=== PATIENT | female | born 1980 | race Caucasian/White ===

== ENCOUNTER 2018-08-21 00:34 | Emergency (ER) | payer OTHER ==
[2018-08-21 01:06] LABS: BASOPHILS % (AUTO) 1 % (0-3); EOSINOPHILS % (AUTO) 1 % (0-9); HEMATOCRIT 45 % (35-47); HEMOGLOBIN 14.9 gm/dl (12.0-15.5); LYMPHOCYTES % (AUTO) 31.3 % (10-50); MEAN CORPUSCULAR HEMOGLOBIN 32.9 pg (27.0-32.0); MEAN CORPUSCULAR HGB CONC 33.3 gm/dl (32.0-36.0); MONOCYTES % (AUTO) 8.1 % (0-12); NEUTROPHILS % (AUTO) 59.1 % (37-80)
[2018-08-21 01:15] LABS: MEAN CORPUSCULAR VOLUME 99 fL (81-99)
[2018-08-21 01:28] LABS: ALBUMIN 3.1 gm/dl (3.4-5.0); ALKALINE PHOSPHATASE 84 IU/L (46-116); ALT 30 IU/L (14-63); AST 35 IU/L (15-37); BILIRUBIN,TOTAL 0.2 mg/dl (0.2-1.0); BLOOD UREA NITROGEN 6 mg/dl (7-18); CALCIUM 8.2 mg/dl (8.5-10.1); CARBON DIOXIDE 24.2 mEq/L (21-32); CHLORIDE 104 mMol/L (98-107); CREATININE 0.55 mg/dl (0.60-1.00); GLUCOSE 97 mg/dl (74-106); POTASSIUM 3.3 mMol/L (3.5-5.1); SALICYLATE 5.4 mg/dl (2.8-30.0); SODIUM 139 mMol/L (136-145); THYROID STIMULATING HORMONE 3.146 uIU/ml (0.358-3.740); TOTAL PROTEIN 6.8 gm/dl (6.4-8.2)
[2018-08-21 01:29] LABS: APPEARANCE,URINE Clear; BILIRUBIN,URINE NEGATIVE (NEGATIVE); COLOR,URINE Yellow; GLUCOSE, URINE (UA) NEGATIVE (NEGATIVE); KETONES,URINE NEGATIVE (NEGATIVE); LEUKOCYTE ESTERASE ,URINE NEGATIVE (NEGATIVE); NITRATE,URINE NEGATIVE (NEGATIVE); OCCULT BLOOD,URINE NEGATIVE (NEG-TRACE); UROBILINOGEN,URINE 0.2 (0.2-1.0 EU)
[2018-08-21 01:36] LABS: AMPHETAMINES NEGATIVE (NEGATIVE); BARBITUATES NEGATIVE (NEGATIVE); BENZODIAZEPINES NEGATIVE (NEGATIVE); CANNABINOL(THC) NEGATIVE (NEGATIVE); COCAINE(COC) NEGATIVE (NEGATIVE); METHADONE NEGATIVE (NEGATIVE); METHAMPHETAMINES NEGATIVE (NEGATIVE); OPIATES(OPI) NEGATIVE (NEGATIVE); OXYCODONE(OXY) NEGATIVE (NEGATIVE); PROPOXYPHENE(PPX) NEGATIVE (NEGATIVE); TRICYCLIC ANTIDEPRESSANTS NEGATIVE (NEGATIVE)
[2018-08-21 01:37] LABS: ACETAMINOPHEN < 2 ug/ml (10-30)
[2018-08-21 01:51] LABS: BACTERIA TRACE (< 1+); CRYSTALS NEGATIVE (0-3 AVE/HPF); EPITHELIAL CELLS 0-2 (SQUAMOUS); RBC,URINE NEGATIVE (0-3AV/HPF); WBC,URINE 0-2 (0-5AV/HPF)
[2018-08-21] MEDS ORDERED: POTASSIUM CHLORIDE 10 MEQ TER PO ONE (02:36)
[2018-08-21] MEDS ORDERED: POTASSIUM CHLORIDE 10 MEQ TER ONE (02:51)
[2018-08-21] MEDS ORDERED: SODIUM CHLORIDE 0.9% 1000ML 1,000 ML IV ONE (03:28)
[2018-08-21 07:48] VITALS: BP 160/95; PULSE 79; RESP 20; TEMP 97.4; O2SAT 97
== END 2018-08-21 08:31 | DRG 880 ==
LOC: ED 00:34
DX: R45.851 Suicidal ideations (principal)
CPT/HCPCS: 36415; 80053; 80305; 80307; 81001; 84443; 84703; 85025; 96365; 99283; 99285; A9270-GY

== ENCOUNTER 2018-12-02 06:47 | Emergency (ER) | payer OTHER ==
[2018-12-02 06:53] VITALS: RESP 24
[2018-12-02 07:11] VITALS: TEMP 96.6
[2018-12-02] MEDS ORDERED: SODIUM CHLORIDE 0.9% 1000ML 1,000 ML IV ONE (07:41)
[2018-12-02] MEDS ORDERED: ONDANSETRON HCL 4 MG/2 ML SOL IV ONE (07:42)
[2018-12-02 07:54] LABS: BASOPHILS % (AUTO) 1 % (0-3); EOSINOPHILS % (AUTO) 0 % (0-9); HEMATOCRIT 45 % (35-47); HEMOGLOBIN 14.9 gm/dl (12.0-15.5); LYMPHOCYTES % (AUTO) 11.3 % (10-50); MEAN CORPUSCULAR HEMOGLOBIN 30.6 pg (27.0-32.0); MEAN CORPUSCULAR HGB CONC 32.9 gm/dl (32.0-36.0); MEAN CORPUSCULAR VOLUME 93 fL (81-99); MONOCYTES % (AUTO) 10.1 % (0-12)
[2018-12-02] MEDS ORDERED: ONDANSETRON HCL 4 MG/2 ML SOL ONE (07:54)
[2018-12-02 08:15] LABS: INFLUENZA A NEGATIVE (NEGATIVE); INFLUENZA B NEGATIVE (NEGATIVE)
[2018-12-02 08:18] LABS: CALCIUM 8.5 mg/dl (8.5-10.1); CARBON DIOXIDE 23.3 mEq/L (21-32); CREATININE 0.7 mg/dl (0.60-1.00)
[2018-12-02 08:21] LABS: POTASSIUM 2.9 mMol/L (3.5-5.1)
[2018-12-02] MEDS ORDERED: POTASSIUM CHLORIDE 10 MEQ TER PO ONE (08:58)
[2018-12-02] MEDS ORDERED: POTASSIUM CHLORIDE 10 MEQ TER ONE (09:04)
[2018-12-02] MEDS ORDERED: HYDRALAZINE HYDROCHLORIDE 20 MG/ML SOL IV SCH (10:30)
[2018-12-02] MEDS ORDERED: HYDRALAZINE HYDROCHLORIDE 20 MG/ML SOL ONE (10:34)
[2018-12-02 11:34] VITALS: BP 143/86; PULSE 85; O2SAT 97
== END 2018-12-02 11:15 | disposition home or self-care (01) | DRG 153 ==
LOC: ED 06:47
DX: J01.90 Acute sinusitis, unspecified (principal); E87.6 Hypokalemia
CPT/HCPCS: 71046; 80048; 85025; 87070; 87205; 87220; 87430; 87804; 96365; 96366; 96374; 96375; 99283; 99285; J0360; J2405; A9270-GY

== ENCOUNTER 2019-02-08 09:07 | Emergency (ER) | payer OTHER ==
[2019-02-08 09:14] VITALS: RESP 20
[2019-02-08] MEDS ORDERED: SODIUM CHLORIDE 0.9% 1000ML 1,000 ML IV ONE ×2 (09:43→10:12)
[2019-02-08 09:58] LABS: BASOPHILS % (AUTO) 1 % (0-3); EOSINOPHILS % (AUTO) 1 % (0-9); HEMATOCRIT 45 % (35-47); HEMOGLOBIN 15.1 gm/dl (12.0-15.5); LYMPHOCYTES % (AUTO) 30.2 % (10-50); MEAN CORPUSCULAR HEMOGLOBIN 32.2 pg (27.0-32.0); MEAN CORPUSCULAR HGB CONC 33.2 gm/dl (32.0-36.0); MEAN CORPUSCULAR VOLUME 97 fL (81-99); MONOCYTES % (AUTO) 6.2 % (0-12); NEUTROPHILS % (AUTO) 62.1 % (37-80)
[2019-02-08 10:26] LABS: ALBUMIN 3.1 gm/dl (3.4-5.0); ALKALINE PHOSPHATASE 99 IU/L (46-116); ALT 31 IU/L (14-63); AST 59 IU/L (15-37); BILIRUBIN,TOTAL 0.2 mg/dl (0.2-1.0); BLOOD UREA NITROGEN 5 mg/dl (7-18); CALCIUM 7.9 mg/dl (8.5-10.1); CARBON DIOXIDE 28.6 mEq/L (21-32); CHLORIDE 107 mMol/L (98-107); CREATININE 0.64 mg/dl (0.60-1.00); GLUCOSE 93 mg/dl (74-106); SALICYLATE 4.1 mg/dl (2.8-30.0); SODIUM 147 mMol/L (136-145); THYROID STIMULATING HORMONE 0.381 uIU/ml (0.358-3.740); TOTAL PROTEIN 7.1 gm/dl (6.4-8.2)
[2019-02-08 10:28] LABS: ACETAMINOPHEN < 2 ug/ml (10-30)
[2019-02-08 10:29] LABS: POTASSIUM 2.9 mMol/L (3.5-5.1)
[2019-02-08] MEDS ORDERED: POTASSIUM CHLORIDE 10 MEQ TER PO ONE (10:31)
[2019-02-08 10:32] LABS: ALCOHOL 0.391 gm/dl (0.000-0.08)
[2019-02-08] MEDS ORDERED: POTASSIUM CHLORIDE 2 MEQ/ML 20 MEQ, LIDOCAINE HCL 1% MDV 2 ML in SODIUM CHLORIDE 0.9% 2... IV ONE (10:32)
[2019-02-08] MEDS ORDERED: POTASSIUM CHLORIDE 10 MEQ TER ONE ×2 (10:40→13:41)
[2019-02-08] MEDS ORDERED: POTASSIUM CHLORIDE 2 MEQ/ML SOL IV ONE (10:43)
[2019-02-08] MEDS ORDERED: THIAMINE 100 MG TAB PO ONE (11:25)
[2019-02-08] MEDS ORDERED: SODIUM CHLORIDE 0.9% 1000ML 1,000 ML IV SCH ×2 (11:30→12:56)
[2019-02-08] MEDS ORDERED: THIAMINE 100 MG TAB ONE (11:40)
[2019-02-08] MEDS ORDERED: MULTIVITAMIN2 1 EA TAB ONE (11:47)
[2019-02-08 13:14] VITALS: TEMP 96.4; O2SAT 92
[2019-02-08 14:54] VITALS: BP 128/88; PULSE 84
[2019-02-08 15:36] LABS: APPEARANCE,URINE Clear; BILIRUBIN,URINE NEGATIVE (NEGATIVE); COLOR,URINE Yellow; GLUCOSE, URINE (UA) NEGATIVE (NEGATIVE); KETONES,URINE NEGATIVE (NEGATIVE); LEUKOCYTE ESTERASE ,URINE NEGATIVE (NEGATIVE); NITRATE,URINE NEGATIVE (NEGATIVE); OCCULT BLOOD,URINE NEGATIVE (NEG-TRACE); UROBILINOGEN,URINE 0.2 (0.2-1.0 EU)
[2019-02-08 15:44] LABS: RBC,URINE NEG (0-3AV/HPF)
[2019-02-08 15:45] LABS: AMPHETAMINES NEGATIVE (NEGATIVE); BACTERIA NEGATIVE (< 1+); BARBITUATES NEGATIVE (NEGATIVE); BENZODIAZEPINES NEGATIVE (NEGATIVE); CANNABINOL(THC) NEGATIVE (NEGATIVE); COCAINE(COC) NEGATIVE (NEGATIVE); CRYSTALS NEGATIVE (0-3 AVE/HPF); METHADONE NEGATIVE (NEGATIVE); METHAMPHETAMINES NEGATIVE (NEGATIVE); OPIATES(OPI) NEGATIVE (NEGATIVE); OXYCODONE(OXY) NEGATIVE (NEGATIVE); PROPOXYPHENE(PPX) NEGATIVE (NEGATIVE); TRICYCLIC ANTIDEPRESSANTS NEGATIVE (NEGATIVE); WBC,URINE 0-1 (0-5AV/HPF)
[2019-02-08 16:57] LABS: BASOPHILS % (AUTO) 1 % (0-3); EOSINOPHILS % (AUTO) 1 % (0-9); HEMATOCRIT 42 % (35-47); HEMOGLOBIN 13.7 gm/dl (12.0-15.5); LYMPHOCYTES % (AUTO) 37.9 % (10-50); MEAN CORPUSCULAR HEMOGLOBIN 31.9 pg (27.0-32.0); MEAN CORPUSCULAR HGB CONC 32.3 gm/dl (32.0-36.0); MONOCYTES % (AUTO) 5.9 % (0-12); NEUTROPHILS % (AUTO) 54.8 % (37-80)
[2019-02-08 17:02] LABS: MEAN CORPUSCULAR VOLUME 99 fL (81-99)
[2019-02-08 17:10] LABS: ALBUMIN 2.8 gm/dl (3.4-5.0); ALKALINE PHOSPHATASE 91 IU/L (46-116); ALT 26 IU/L (14-63); AST 52 IU/L (15-37); BILIRUBIN,TOTAL 0.3 mg/dl (0.2-1.0); BLOOD UREA NITROGEN 5 mg/dl (7-18); CALCIUM 7.1 mg/dl (8.5-10.1); CARBON DIOXIDE 26.4 mEq/L (21-32); CHLORIDE 106 mMol/L (98-107); CREATININE 0.62 mg/dl (0.60-1.00); GLUCOSE 84 mg/dl (74-106); POTASSIUM 3.4 mMol/L (3.5-5.1); SALICYLATE 3.7 mg/dl (2.8-30.0); SODIUM 143 mMol/L (136-145); TOTAL PROTEIN 6.4 gm/dl (6.4-8.2)
[2019-02-08 17:11] LABS: ACETAMINOPHEN < 2 ug/ml (10-30); ALCOHOL 0.198 gm/dl (0.000-0.08)
[2019-02-08 18:08] LABS: AMPHETAMINES NEGATIVE (NEGATIVE); BARBITUATES NEGATIVE (NEGATIVE); BENZODIAZEPINES NEGATIVE (NEGATIVE); CANNABINOL(THC) NEGATIVE (NEGATIVE); COCAINE(COC) NEGATIVE (NEGATIVE); METHADONE NEGATIVE (NEGATIVE); METHAMPHETAMINES NEGATIVE (NEGATIVE); OPIATES(OPI) NEGATIVE (NEGATIVE); OXYCODONE(OXY) NEGATIVE (NEGATIVE); PROPOXYPHENE(PPX) NEGATIVE (NEGATIVE); TRICYCLIC ANTIDEPRESSANTS NEGATIVE (NEGATIVE)
[2019-02-09] MEDS ORDERED: MAGNESIUM OXIDE 400 MG TAB ONE (01:28)
[2019-02-09] MEDS ORDERED: MULTIVITAMIN2 1 EA TAB PO SCH (09:00)
== END 2019-02-08 15:45 | disposition left against medical advice (07) | DRG 914 ==
LOC: ED 09:07
DX: T14.91XA Suicide attempt, initial encounter (principal); X83.8XXA Intentional self-harm by other specified means, initial encounter; F10.129 Alcohol abuse with intoxication, unspecified; Y90.8 Blood alcohol level of 240 mg/100 ml or more; Z53.21 Procedure and treatment not carried out due to patient leaving prior to being seen by health care provider; F41.8 Other specified anxiety disorders; Y90.6 Blood alcohol level of 120-199 mg/100 ml
CPT/HCPCS: 36415; 80053; 80305; 80307; 81001; 83735; 84443; 84703; 85025; 93005; 96365; 96366; 96374; 99285; 99291; 99292; J3475; J3480; A9270-GY; J2001

== ENCOUNTER 2019-02-08 16:24 | Emergency (ER) | payer OTHER ==
[2019-02-08] MEDS: POTASSIUM CHLORIDE 10 MEQ TER PO ONE (17:35)
[2019-02-08] MEDS ORDERED: POTASSIUM CHLORIDE 10 MEQ TER ONE (17:38)
[2019-02-08 23:55] VITALS: BP 177/97; PULSE 99; RESP 16; TEMP 97.4; O2SAT 98
[2019-02-09] MEDS ORDERED: MAGNESIUM SULFATE 5 GM/10 ML SOL ONE (01:25)
[2019-02-09] MEDS: MAGNESIUM SULFATE 1 GM/2 ML SOL IV ONE (01:30)
[2019-02-09] MEDS: MAGNESIUM OXIDE 400 MG TAB PO SCH (01:33)
== END 2019-02-09 04:00 | disposition short-term general hospital (02) | DRG 880 ==
LOC: ED 16:24
DX: R45.851 Suicidal ideations (principal)
CPT/HCPCS: 80053; 80305; 80307; 83735; 84703; 85025; 93005; 99285; J3475; A9270-GY

== ENCOUNTER 2019-03-28 00:23 | Emergency (ER) | payer OTHER ==
[2019-03-28 00:49] VITALS: TEMP 97.9; O2SAT 99
[2019-03-28 01:05] VITALS: BP 114/79; PULSE 70; RESP 16
== END 2019-03-28 01:38 | disposition home or self-care (01) | DRG 951 ==
LOC: ED 00:23
DX: Z04.6 Encounter for general psychiatric examination, requested by authority (principal); F43.20 Adjustment disorder, unspecified; Z72.89 Other problems related to lifestyle; Z33.1 Pregnant state, incidental
CPT/HCPCS: 99282